=== PATIENT | female | born 1950 | race Two or more races ===

== ENCOUNTER → 2018-04-22 | Outpatient (CLI) | payer MEDICARE, MEDICAID ==
[~2018-04-22] MED LIST: ATOR40TA78 PO; INSU100C SQ-INSULIN; INSU100I34 SC; LEVO100T5 PO; LOSA100T7 PO; METF500T17 PO; TRAZ-136 PO
== END | disposition home or self-care (01) ==
LOC: STAR 10:34
PROVIDERS: ATTEND Surgery
DX: Z01.818 Encounter for other preprocedural examination (principal)
CPT/HCPCS: 93005

== ENCOUNTER 2018-04-28 11:01 | Inpatient (IN) | payer MEDICARE, MEDICAID ==
[2018-04-22 11:03] VITALS: BP 152/84
[~2018-04-28] VITALS: Ht 157.5 cm; Wt 71.6 kg
[~2018-04-28 11:01] MED LIST changes: +BUPIVACAINE/PF 0.5% ONE; +EPINEPHRINE 1 MG/ML, 1ML ONE
[2018-04-28] MEDS ORDERED: LACTATED RINGERS 1,000 ML IV SCH (12:36)
[2018-04-28 12:39] LABS: ALANINE AMINOTRANSFERASE 24 U/L (12-78); ALBUMIN 3.7 g/dL (3.4-5.0); ANION GAP 10 mmol/L (5-15); CALCIUM 8.6 mg/dL (8.5-10.1); CHLORIDE 109 mmol/L (98-107); CREATININE 0.73 mg/dL (0.55-1.02)
[2018-04-28 12:41] LABS: ALKALINE PHOSPHATASE 82 U/L (45-117); BILIRUBIN,TOTAL 0.4 mg/dL (0.2-1.0); TOTAL PROTEIN 7.6 g/dL (6.4-8.2)
[2018-04-28] MEDS ORDERED: FENTANYL PF 250 MCG/5ML ONE (19:01)
[2018-04-28] MEDS ORDERED: ROCURONIUM 10MG/ML,5ML ONE (19:14)
[2018-04-28] MEDS ORDERED: SUCCINYLCHOLINE 20 MG/ML, 10ML ONE (19:14)
[2018-04-28] MEDS ORDERED: MIDAZOLAM 1 MG/ML, 2ML ONE (19:17)
[2018-04-28] MEDS ORDERED: CEFAZOLIN 1,000 MG ONE (19:29)
[2018-04-28] MEDS ORDERED: ONDANSETRON 2MG/ML, 2ML ONE (19:29)
[2018-04-28] MEDS ORDERED: DEXAMETHASONE 4 MG/ML, 1ML ONE (19:29)
[2018-04-28] MEDS ORDERED: ACETAMINOPHEN 325 MG TABLET PO PRN (21:00)
[2018-04-28] MEDS ORDERED: HYDROmorphone 1 MG/ML, 1ML IV PRN (21:00)
[2018-04-28] MEDS ORDERED: OXYcodone 5 MG/5 ML ORAL.SOL UDC PO PRN (21:00)
[2018-04-28] MEDS ORDERED: ALBUTEROL SULFATE 2.5 MG/3 ML NPPB PRN (21:00)
[2018-04-28] MEDS ORDERED: PROMETHAZINE 25 MG/ML, 1ML IV PRN (21:00)
[2018-04-28] MEDS ORDERED: FENTANYL PF 100 MCG/2ML ONE (21:08)
[2018-04-28] MEDS ORDERED: OXYcodone 5 MG/5 ML ORAL.SOL UDC ONE (21:08)
[2018-04-28] MEDS ORDERED: INSULIN SINGLE DOSE, ER SQ-INSULIN ONE (21:08)
[2018-04-28] MEDS: INSULIN REGULAR 100 UNITS/ML, 3ML VIAL SQ-INSULIN SCH (21:10)
[2018-04-28] MEDS: FENTANYL PF 100 MCG/2ML IV PRN ×3 (21:12→21:50)
[2018-04-28] MEDS ORDERED: hydrALAzine 20 MG/ML, 1ML ONE (21:13)
[2018-04-28] MEDS: hydrALAzine 20 MG/ML, 1ML IV PRN ×2 (21:15→21:46)
[2018-04-28] MEDS ORDERED: HYDROmorphone 2 MG/ML, 1ML ONE (21:43)
[2018-04-28] MEDS: LABETALOL 5MG/ML, 20ML IV PRN ×2 (22:17→22:43)
[2018-04-29 00:59] VITALS: BP 139/70
[2018-04-29] MEDS ORDERED: ACETAMINOPHEN 650 MG SUPP PR PRN (01:30)
[2018-04-29] MEDS ORDERED: hydrALAzine 20 MG/ML, 1ML IV PRN (01:30)
[2018-04-29] MEDS ORDERED: HYDROcodone/APAP 5/325 TABLET PO PRN (01:30)
[2018-04-29] MEDS: ACETAMINOPHEN 325 MG TABLET PO PRN ×2 (04:33→08:56)
[2018-04-29 07:24] VITALS: BP 129/70
[2018-04-29] MEDS: INSULIN REGULAR 100 UNITS/ML, 3ML VIAL SQ-INSULIN SCH ×2 (08:56→11:57)
[2018-04-29] MEDS: SODIUM CHLORIDE FLUSH 10ML SYR IVF SCH ×2 (08:58)
[2018-04-29] MEDS ORDERED: SODIUM CHLORIDE FLUSH 10ML SYR IVF SCH (09:00)
[2018-04-29] MEDS ORDERED: ONDANSETRON 2MG/ML, 2ML ONE (10:47)
[2018-04-29] MEDS ORDERED: ONDANSETRON 4 MG TABLET PO PRN (11:00)
[2018-04-29] MEDS ORDERED: ONDANSETRON 2MG/ML, 2ML IVPush PRN (11:00)
[2018-04-29 13:40] VITALS: BP 99/64
[2018-04-29] MEDS ORDERED: HYDR-3240 PO (15:25)
== END 2018-04-29 16:25 | disposition home or self-care (01) | DRG 627 ==
LOC: OUT 11:01 → 4NOR 23:20 → OUT 23:37 → DCLOUNGE 04-29 16:12
PROVIDERS: ADMIT Surgery; ATTEND Surgery
PROC: 0GTH0ZZ Resection of Right Thyroid Gland Lobe, Open Approach (ICD-10-PCS; principal; 2018-04-28 12:45)
DX: C73 Malignant neoplasm of thyroid gland (principal); E11.9 Type 2 diabetes mellitus without complications; E78.00 Pure hypercholesterolemia, unspecified; I10 Essential (primary) hypertension; Z83.3 Family history of diabetes mellitus; Z82.49 Family history of ischemic heart disease and other diseases of the circulatory system; Z79.899 Other long term (current) drug therapy
CPT/HCPCS: 36415; 80053; 82962; 88305; 88307; G0378; J0171; J0690; J1100; J1170; J1815; J2250; J2405; J3010; J3490; C1760; J0330; J0360; J7120

== ENCOUNTER → 2018-09-26 | Outpatient (CLI) | payer MEDICARE, MEDICAID ==
[~2018-09-26] MED LIST changes: -BUPIVACAINE/PF 0.5% ONE; -EPINEPHRINE 1 MG/ML, 1ML ONE; +HYDR-3240 PO; +LOSA100T14 PO; -LOSA100T7 PO; -TRAZ-136 PO; +TRAZ50TA66 PO
== END | disposition home or self-care (01) ==
LOC: CFH 13:25
PROVIDERS: ATTEND Internal Medicine
DX: R05 Cough (principal)
CPT/HCPCS: 71250